=== PATIENT | female | born 1995 | race Caucasian/White ===

== ENCOUNTER 2017-03-01 07:15 | Day surgery (SDC) | payer OTHER ==
[~2017-03-01] VITALS: Ht 160 cm; Wt 69.4 kg
[2017-03-01] VITALS (8 sets, daily range): BP systolic 94–124; BP diastolic 67–88; PULSE 74–94; TEMP 97.6–97.7
[2017-03-01] MEDS ORDERED: FLAGYL500 MG PO (07:51)
[2017-03-01] MEDS ORDERED: BIAXIN 500MG T500 MG PO (07:51)
[2017-03-01] MEDS ORDERED: MULTI VITAMINS1 TAB PO (07:52)
[2017-03-01] MEDS ORDERED: PRILOTC PO (07:52)
[2017-03-01] MEDS ORDERED: ADVIL200 MG PO (07:52)
== END 2017-03-01 10:00 | disposition home or self-care (01) ==
LOC: SDCO 07:15
DX: K21.9 Gastro-esophageal reflux disease without esophagitis (principal); B96.81 Helicobacter pylori [H. pylori] as the cause of diseases classified elsewhere
CPT/HCPCS: OP; J2250; J3010; J7030

== ENCOUNTER → 2017-03-08 | Outpatient (REF) ==
[~2017-03-08] MED LIST: ADVIL200 MG PO; BIAXIN 500MG T500 MG PO; FLAGYL500 MG PO; MULTI VITAMINS1 TAB PO; PRILOTC PO
== END ==
LOC: WSOH 11:30
DX: Z02.89 Encounter for other administrative examinations (principal)